=== PATIENT | female | born 1955 | race Caucasian/White ===

== ENCOUNTER → 2016-05-15 | Outpatient (CLI) | payer MEDICAID ==
[~2016-05-15] MED LIST: AMOX500T PO; CIPR-9 PO; ESTR42.5V VAGINAL; LACT10SO PO; PANT40TA3 PO; REGL5TAB PO
== END ==
LOC: PLAB 10:21
PROVIDERS: ATTEND Urology
DX: R30.0 Dysuria (principal); R31.9 Hematuria, unspecified; N89.8 Other specified noninflammatory disorders of vagina

== ENCOUNTER → 2016-08-28 | Outpatient (CLI) | payer MEDICAID, OTHER ==
[~2016-08-28] MED LIST changes: -AMOX500T PO; -CIPR-9 PO; -ESTR42.5V VAGINAL
[2016-08-28 14:24] LABS: BLOOD, URINE NEG (NEG); GLUCOSE,URINE NEG (NEG); KETONE, URINE NEG (NEG); MUCUS URINE FEW /lpf (OCC); NITRITE,URINE NEG (NEG); PH, URINE 6.5 (5.0-8.5); SQUAMOUS EPITHELIAL CELL URINE <1 /hpf (0-5); URINE COLOR LIGHT-YELLOW (YELLW/STRAW)
== END ==
LOC: CLAB 13:00
PROVIDERS: ATTEND Family Medicine
DX: N03.9 Chronic nephritic syndrome with unspecified morphologic changes (principal)
CPT/HCPCS: 81001; 87086

== ENCOUNTER → 2016-12-29 | Outpatient (CLI) | payer OTHER ==
[~2016-12-29] MED LIST changes: -REGL5TAB PO
[2016-12-31 03:51] LABS: (LFP)ALT 22 U/L (6-29); A2 MACROGLOBULIN 235 mg/dL (106-279); FIBROSIS STAGE F1-F2; GGT(LFP) 47 U/L (3-65); HAPTOGLOBIN (LFP) 107 mg/dL (43-212); NECROINFLAMM ACT GRADE A0; REFERENCE ID 1616205; TOTAL BILIRUBIN (LFP) 0.8 mg/dL (0.2-1.2)
== END ==
LOC: PLAB 09:27
PROVIDERS: ATTEND Family Medicine
DX: K74.60 Unspecified cirrhosis of liver (principal)
CPT/HCPCS: 36415; 82172; 82247; 82977; 83010; 83883; 84460; 86704; 86803